=== PATIENT | male | born 1960 | race Asian ===

== ENCOUNTER → 2023-10-30 06:22 | Day surgery (SDC) | payer BC, SELFPAY | LOC: GI 06:22 | PROVIDERS: ATTENDING PHYSICIAN Internal Medicine Gastroenterology | DX: K22.70 Barrett's esophagus without dysplasia (principal); K29.50 Unspecified chronic gastritis without bleeding; K21.9 Gastro-esophageal reflux disease without esophagitis; K22.89 Other specified disease of esophagus; K44.9 Diaphragmatic hernia without obstruction or gangrene; K26.9 Duodenal ulcer, unspecified as acute or chronic, without hemorrhage or perforation; Q39.9 Congenital malformation of esophagus, unspecified | CPT/HCPCS: 43239; 88305; 88342 ==

== ENCOUNTER → 2024-08-31 13:37 | Outpatient (REF) | payer MEDICARE, OTHER, SELFPAY | LOC: HWRAD 13:37 | PROVIDERS: ATTENDING PHYSICIAN Family Medicine; REFERRING PHYSICIAN Chiropractor | DX: M54.6 Pain in thoracic spine (principal); M53.2X7 Spinal instabilities, lumbosacral region; R10.2 Pelvic and perineal pain | CPT/HCPCS: 72072; 72110; 72170 ==

== ENCOUNTER 2024-10-13 06:25 | Day surgery (SDC) | payer MEDICARE, OTHER, SELFPAY | END 2024-10-13 15:19 | disposition home or self-care (01) | LOC: GI 06:25 | PROVIDERS: ATTENDING PHYSICIAN Internal Medicine Gastroenterology | DX: K22.70 Barrett's esophagus without dysplasia (principal); K22.89 Other specified disease of esophagus; K44.9 Diaphragmatic hernia without obstruction or gangrene; K31.89 Other diseases of stomach and duodenum | CPT/HCPCS: 43239; 88305; 88342 ==